=== PATIENT | female | born 1940 ===

== ENCOUNTER → 2022-04-21 13:28 | Outpatient (CLI) | payer MEDICARE, MEDICAID, SELFPAY ==
--- NOTE | 2022-04-21 11:15 | DI.CT_ITS ---
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 TECHNIQUE: Multi planar reconstructions were performed. CONTRAST MATERIAL: None COMPARISON: CT CT CHEST W/O CONTRAST from 12/22/2020 CR CHEST SINGLE PA 1V PORTABLE from 03/05/[address] CXRABDPELVIS WITH IV AND ORAL from 09/27/2021 FINDINGS: CHEST: LUNGS: In the right upper lobe the previously present lobulated nodule has slightly decreased in size . However, slightly more posteriorly in the posterior segment right upper lobe there is a new nodula r infiltrate contiguous with the uppermost aspect the right major fissure, measuring approximately 1. 2 by 0.8 cm. These findings are superimposed upon emphysematous changes and some interstitial fibrot ic change. There are no new focal findings in the opposite-left lung. There are no pleural effusions on either side. No new focal findings in the trachea and mainstem bronchi. MEDIASTINUM: There is no obvious hilar nor mediastinal adenopathy. Visualized thyroid unremarkable.No obvious axillary adenopathy CARDIAC: Sternotomy wires. Heart size is normal. Coronary artery calcifications noted. Diameter of the ascending thoracic aorta is upper normal. The diameter of the descending thoracic aorta is some what prominent, measuring 3.2 cm.The lower most images of this chest study reveal a large abdominal a ortic aneurysm with maximum diameter at least 6.5 cm VISUALIZED UPPER ABDOMEN:No adrenal masses. No splenomegaly. OSSEOUS: No significant osseous lesions.No fractures.. IMPRESSION: 1. The lower most images of this chest study reveal a partially included large abdominal aortic aneur ysm with a diameter of 6.5 cm. Please note that only the upper half of this aneurysm is included in the field of view of this chest study. CT of the abdomen pelvis should be performed. 2. In the posterior aspect of the right upper lobe there is a 12 x 8 millimeter new nodular infiltrat e contiguous with the superior aspect of the right major fissure. Slightly above this level there is a slightly lobulated nodule which appears to have slightly decreased in size from the prior outside CT scan of 12/22/2020. 3. COPD emphysematous findings as well as some interstitial fibrotic changes in the lung jacobs noted . Sternotomy wires noted RADIATION DOSE DELIVERED: 501.66mGy.cm Total DLP DATA REPOSITORY: All CT scans at this facility are submitted to the National Radiology Data Registry (NRDR) Dose Index Registry (DIR) with the [employer] ([employer]). RADIATION OPTIMIZATION: All CT scans at this facility use at least one of these dose optimization te chniques: automated exposure control; mA and/or kV adjustment per patient size (includes targeted exa ms where dose is matched to clinical indication); or iterative reconstruction.
== END ==
PROVIDERS: PCP Family Medicine; Visit Provider Nurse Practitioner Family
DX: C34.11 Malignant neoplasm of upper lobe, right bronchus or lung (principal); I71.4 Abdominal aortic aneurysm, without rupture; J44.9 Chronic obstructive pulmonary disease, unspecified; R91.8 Other nonspecific abnormal finding of lung field
CPT/HCPCS: 71250